=== PATIENT | female | born 1965 | race Caucasian/White ===

== ENCOUNTER → 2017-10-14 15:54 | Outpatient (CLI) | payer OTHER, SELFPAY ==
--- NOTE | 2017-10-14 09:10 | COLBX_PTH ---
PATIENT: ROSANA SHARMA LOC: [facility] U#:[id number] AGE/SX: 59/F ROOM: RE10/14/[address]: Dr. Jason Rizzo MD : 1965 BED: DIS: SPEC #: [id number] RECD: 10/14/17 15:26 STATUS: ARRON DUNIA #: [id number] VIRAL: 10/14/17 09:[address]: Jason Rizzo DEPT: SURGICAL PATHOLOGY RECD BY: Daniel Warren ENTERED: 10/17/17 12:57 SP TYPE: COLON BX OTHR DR: Dr. Kristi Gamez MD [facility] Tissues: Left colon Procedures: Surgery Specimen Level IV HEADER OPERATION: Colonoscopy with biopsies PRE-OP DIAGNOSIS: Screening/colitis TISSUE SUBMITTED: Left colon biopsy, rule out microscopic colitis MICROSCOPIC DIAGNOSIS Left colon, biopsy: Fragments of colonic mucosa, no pathologic diagnosis. SJ:dru 10/18/17 MICROSCOPIC DESCRIPTION Slides are reviewed. GROSS DESCRIPTION Received in fixative is one container labeled with the patient's name and designated colonoscopy with biopsy. The specimen consists of multiple irregular fragments of light treadwell soft tissue that in aggregate measure 1 x 0.3 x 0.1 cm. The specimen is totally submitted in one cassette. / SJ:dru 10/17/17 TC:4 CPT: 43980
== END ==
PROVIDERS: Family Provider Internal Medicine; PCP Internal Medicine; Visit Provider Internal Medicine Gastroenterology
DX: Z12.11 Encounter for screening for malignant neoplasm of colon (principal); K52.9 Noninfective gastroenteritis and colitis, unspecified
CPT/HCPCS: 88305

== ENCOUNTER → 2020-01-02 | Outpatient (CLI) | payer OTHER, SELFPAY ==
[2017-07-04 13:51] VITALS: BMI 42.7
--- NOTE | 2020-01-02 08:02 | CT_ITS ---
STUDY: CT SCAN LOWER EXTREMITY LEFT REASON FOR EXAM: Female, 54 years old. LEFT KNEE AGATA PROTOCOL RADIATION DOSAGE (If Supplied By Facility): CTDIvol = ( 19.49 ) mGy, DLP = ( 1170.70 ) mGycm. Individualized dose optimization techniques were used for this CT.? TECHNIQUE: Multiple axial tomographic images of the left hip joint, knee joint and ankle joint were obtained. Sagittal and coronal reconstructive images were obtained as well. COMPARISON: None. FINDINGS: The left hip is unremarkable. No significant degenerative change is seen. No abnormality is present. There is evidence of a marked degree of joint space narrowing and osteoarthritis involving the medial compartment of knee joint with a degenerative spur formation along the anterior medial aspect of the distal femur as well as proximal tibia. There is a 6.4 mm x 6.1 mm cyst in the medial posterior aspect of the lateral tibial plateau. There is also evidence of a degenerative spurring along the superior aspect of the medial femoral condyle posteriorly. Moderate amount of osteoarthritis involving the patellofemoral joint. There is evidence of a small joint effusion. The ankle joint is unremarkable. There is evidence of a 7.3 mm focal sclerotic finding along the anterior aspect of the talar neck. CT/Extremity Lower without Contra IMPRESSION: Marked degree of osteoarthritis with a degenerative changes involving the medial compartment of the knee joint. Small joint effusion. Electronically Signed: Santiago Phillips, at 13:49 EDT , Service support ,
== END | disposition home or self-care (01) ==
PROVIDERS: PCP Nurse Practitioner Family; Referring Provider Physician Assistant; Visit Provider Physician Assistant
DX: M21.162 Varus deformity, not elsewhere classified, left knee (principal)
CPT/HCPCS: 73700

== ENCOUNTER 2020-01-14 10:13 | Observation (INO) | payer OTHER, SELFPAY ==
[2017-07-04 13:51] VITALS: BMI 42.7
[2020-01-02 08:13] LABS: Absolute Lymphocyte Count 1.86 X10^3/uL (0.83-4.51); Absolute Neutrophil Count 4.7 X10^3/uL (2.0-7.7); Basophil# 0.04 X10^3/uL; Basophil% 0.6 % (0-1); Eosinophil# 0.13 X10^3/uL; Eosinophils% 1.8 % (0-5); Hematocrit 39.5 % (37-47); Hemoglobin 12.4 g/dL (12.0-15.0); Lymphocyte # 1.86 X10^3/ul (4.0); Lymphocyte % 26.2 % (19-41); Mean Corp Hgb Conc 31.4 g/dL (32-36); Mean Corpuscular Hgb 27.4 pg (27.0-32.0); Mean Corpuscular Volume 87.4 fL (81-99); Mean Platelet Vol. 9.2 fl (6.2-12.0); Monocyte# 0.37 X10^3/uL; Monocyte% 5.2 % (0-10); NRBC Flagged by Analyzer 0 % (0-5); Neutrophil % 66.1 % (47-70); Platelet Count 225 K/mm3 (150-450); RBC Distribution Width CV 13.8 % (11.6-14.6); RBC Distribution Width SD 43.8 fl (35.1-43.9); Red Blood Count 4.52 M/mm3 (4.2-5.4); White Blood Count 7.1 K/mm3 (4.4-11.0)
[2020-01-02 08:35] LABS: Anion Gap 9 (5-15); BUN 16 mg/dL (7-18); BUN/Creat Ratio 17.8 RATIO (10-20); Calcium,Total 9.3 mg/dL (8.5-10.1); Chloride 107 mmol/L (98-107); EST Glomerular Filtration Rate 69 mL/min (>60); Est Glom Filt Rate - Afr Amer 84 mL/min (>60); Glucose 114 mg/dL (74-106); Potassium 4.3 mmol/L (3.5-5.1); Sodium Level 139 mmol/L (136-145)
[2020-01-02 08:42] LABS: Hemoglobin A1c 5.9 % (3.8-5.6)
--- NOTE | 2020-01-02 08:43 | EKG12_ITS ---
Test Reason : PRE OP Blood Pressure : / mmHG Vent. Rate : 065 BPM Atrial Rate : 065 BPM P-R Int : 140 ms QRS Dur : 070 ms QT Int : 398 ms P-R-T Axes : 036 005 001 degrees QTc Int : 413 ms Normal sinus rhythm with sinus arrhythmia Normal ECG Confirmed by LINH KING, KAREN ([id number]), news editor DELFINA RIVER ([id number]) on 01/04/2020 9:12:37 AM Referred By: Rosalio Blake Confirmed By:KAREN MELTON MD
[2020-01-13 13:44] LABS: Probe Check PASS; Specimen Processing Control PASS
[2020-01-14] VITALS (11 sets, daily range): BP systolic 101–144; BP diastolic 53–99; PULSE 50–80; RESP 16–18; TEMP 36.5–36.9; O2SAT 95–100; BMI 48.9
[2020-01-14 08:59] LABS: AST(SGOT) 31 U/L (15-37); Alanine Aminotransfer ALT/SGPT 59 U/L (13-56); Albumin, Serum 3.5 g/dL (3.2-5.0); Alkaline Phosphatase 92 U/L (45-117); Bilirubin, Direct 0.13 mg/dL (0.00-0.30); Protein, Total 7.5 g/dL (6.4-8.2)
[2020-01-14] MEDS: Gabapentin 600 MG Tablet PO (09:11)
[2020-01-14] MEDS: Acetaminophen 500 MG Tablet 1000 MG PO ×3 (09:11→21:28)
[2020-01-14] MEDS: Lactated Ringers 1,000 ML 100 ML IV (09:44)
[2020-01-14 09:45] LABS: Bedside Glucose 91 mg/dL (70-110)
--- NOTE | 2020-01-14 10:00 | KNEE_PTH ---
PATIENT: ROSANA SHARMA LOC: [facility] U#:[id number] AGE/SX: 54/F [facility]: [facility] RE01/14/[address]: Dr. Rosalio Blake DO : 1965 BED: 1 DIS: 01/15/2020 SPEC #: [id number] RECD: 01/14/20 13:00 STATUS: ARRON REChava #: [id number] VIRAL: 01/14/20 10:[address]: Rosalio Blake DEPT: SURGICAL PATHOLOGY RECD BY: Santiago Bolaños ENTERED: 01/15/20 09:06 SP TYPE: TOTAL KNEE OTHR DR: Pallavi Ivory, ENGINEERING WRITER-C Tissues: Knee, NOS Procedures: Decalcification bone/plaque Surgery Specimen Level IV HEADER OPERATION: Total knee replacement robotic arm assist PRE-OP DIAGNOSIS: Left knee osteoarthritis TISSUE SUBMITTED: Debrided bone and tissue left knee MICROSCOPIC DIAGNOSIS Bone and soft tissue of left knee, total knee resection: Severe degenerative joint disease. Mild synovial hyperplasia with associated mild chronic inflammation. AM:dru 01/18/20 MICROSCOPIC DESCRIPTION Slides are reviewed. GROSS DESCRIPTION Received is one container designated debrided bone and tissue left knee. The specimen consists of multiple fragments of treadwell-yellow bone measuring in aggregate 10 x 8 x 3 cm. Also in the specimen container are multiple fragments of yellow-white soft tissue measuring in aggregate 8 x 7 x 3 cm. A number of bony fragments contain articular surfaces consistent with tibial plateau and femoral condyle and displaying prominent osteophyte formation, eburnation, and bone erosion. Turntable Engineer sections are submitted in two cassettes as follows: 1 - soft tissue, 2 - bone after decalcification. / SJ:dru 01/15/20 TC:5 [facility]: [id number], [id number]
[2020-01-14] MEDS: Cefazolin 2 GM in 0.9% Normal Saline 100 ML IV (10:10)
[2020-01-14 10:11] LABS: Prothrombin Time Fingerstick 14.1 SEC (11.9-14.4)
--- NOTE | 2020-01-14 12:00 | PCM.OPRPT ---
Report of Operation Date of Procedure: 01/14/20 Pre-Operative Diagnosis: OA left knee Post-Operative Diagnosis: same Surgery/Procedure Performed:: left TKR certified pharmacy technician: Johnathan Mcdowell Type of Anesthesia:: Spinal Anesthesiologist: Andres Valdivia - Admvarun VTE Documentation VTE Present on Admission: No VTE Mechan Device Prophylaxis: SCD's, Thigh High ANÍBAL Hose VTE Pharm Prophylaxis ordered?: Yes
[2020-01-14] MEDS: Lactated Ringers 1,000 ML 999 ML IV (12:15)
--- NOTE | 2020-01-14 12:40 | RAD_ITS ---
STUDY: X-RAY - LEFT KNEE REASON FOR EXAM: Female, 54 years old. Post op left total knee TECHNIQUE: 2 view(s) of the knee. COMPARISON: None. FINDINGS: Normal visualized distal femur. Normal visualized proximal tibia and fibula. Normal proximal tibiofibular articulation. The patient is status post total knee replacement. There is good alignment. Postoperative soft tissue changes. RAD/Knee 1 or 2 Views IMPRESSION: Status post total knee replacement. There is good alignment. Postoperative soft tissue changes. Electronically Signed: Santiago Phillips, at 13:01 EDT , Service support ,
[2020-01-14 12:47] LABS: Hematocrit 36.1 % (37-47); Hemoglobin 11.3 g/dL (12.0-15.0); Mean Corp Hgb Conc 31.3 g/dL (32-36); Mean Corpuscular Volume 89.4 fL (81-99); Mean Platelet Vol. 9.1 fl (6.2-12.0); Platelet Count 224 K/mm3 (150-450); RBC Distribution Width CV 13.8 % (11.6-14.6); RBC Distribution Width SD 44.9 fl (35.1-43.9); Red Blood Count 4.04 M/mm3 (4.2-5.4); White Blood Count 6.4 K/mm3 (4.4-11.0)
[2020-01-14 13:01] LABS: Bedside Glucose 104 mg/dL (70-110)
[2020-01-14 13:01] LABS: Anion Gap 5 (5-15); BUN 12 mg/dL (7-18); BUN/Creat Ratio 14.1 RATIO (10-20); Calcium,Total 8.8 mg/dL (8.5-10.1); Chloride 108 mmol/L (98-107); Creatinine, Serum 0.85 mg/dL (0.55-1.02); EST Glomerular Filtration Rate 73 mL/min (>60); Est Glom Filt Rate - Afr Amer 89 mL/min (>60); Estimated Creatinine Clearance 59.15 ml/min; Glucose 121 mg/dL (74-106); Potassium 3.9 mmol/L (3.5-5.1); Sodium Level 140 mmol/L (136-145)
[2020-01-14] MEDS: Lactated Ringers 1,000 ML 125 ML IV ×2 (13:42→21:28)
[2020-01-14] MEDS: Cefazolin 1 GM/50 ML BAG IV (18:38)
[2020-01-14] MEDS: Aspirin 325 MG Tablet PO (18:39)
[2020-01-14] MEDS: metFORMIN HCl 500 MG Tablet PO (18:39)
[2020-01-14] MEDS: Atorvastatin Calcium 40 MG Tablet PO (21:28)
[2020-01-14] MEDS: buPROPion (XL) 150 MG TABLET.XL PO (21:28)
[2020-01-14] MEDS: Vitamin E 400 UNITS Capsule PO (21:28)
[2020-01-14] MEDS: oxyCODONE 5 MG Tablet PO (22:44)
[2020-01-15] MEDS: Cefazolin 1 GM/50 ML BAG IV (02:22)
[2020-01-15] MEDS: oxyCODONE 5 MG Tablet PO ×3 (02:26→12:15)
[2020-01-15 02:33] VITALS: BP 132/70; PULSE 63; RESP 16; TEMP 36.4; O2SAT 98
[2020-01-15] MEDS: Acetaminophen 500 MG Tablet 1000 MG PO (05:05)
[2020-01-15 05:47] LABS: Hematocrit 37.1 % (37-47); Hemoglobin 10.6 g/dL (12.0-15.0); Mean Corp Hgb Conc 28.6 g/dL (32-36); Mean Corpuscular Hgb 27.8 pg (27.0-32.0); Mean Corpuscular Volume 97.4 fL (81-99); Mean Platelet Vol. 8.9 fl (6.2-12.0); Platelet Count 195 K/mm3 (150-450); RBC Distribution Width CV 14.2 % (11.6-14.6); RBC Distribution Width SD 50.3 fl (35.1-43.9); Red Blood Count 3.81 M/mm3 (4.2-5.4); White Blood Count 7.3 K/mm3 (4.4-11.0)
[2020-01-15 06:12] LABS: Anion Gap 8 (5-15); BUN 9 mg/dL (7-18); BUN/Creat Ratio 12.2 RATIO (10-20); Chloride 106 mmol/L (98-107); Creatinine, Serum 0.74 mg/dL (0.55-1.02); EST Glomerular Filtration Rate 87 mL/min (>60); Est Glom Filt Rate - Afr Amer 105 mL/min (>60); Estimated Creatinine Clearance 67.94 ml/min; Glucose 131 mg/dL (74-106); Potassium 4.5 mmol/L (3.5-5.1); Sodium Level 138 mmol/L (136-145)
--- NOTE | 2020-01-15 07:09 | PN.ORTHO_ITS ---
Subjective: Pt. with pain as expected. No calf pain. No N/T/P. - Physical Exam Vitals/I&O's: Vital Signs Temp Pulse Resp BP Pulse Ox 97.5 F L 63 16 132/70 H 98 01/15/20 02:33 01/15/20 02:33 01/15/20 02:33 01/15/20 02:33 01/15/20 02:33 Oxygen Flow Rate (L/min) 6 Oxygen Delivery Method Room Air Weight: 267 lb 3.204 oz Body Mass Index (BMI) 48.9 Intake and Output for Last 24 Hours 01/13/20 01/14/20 01/15/20 23:59 23:59 23:59 Intake Total 4552.08 / 4552.08 2295.83 / 2295.83 Balance 4552.08 / 4552.08 2295.83 / 2295.83 General: Alert, Oriented x3, Cooperative, No apparent distress Extremities: No clubbing, No cyanosis, No edema, Capillary Refill Less than 3 Seconds, No Calf Tenderness, Tenderness - About thigh from tourniquet Skin: Incision - stable Laboratory Results 01/14/20 08:35: Total Bilirubin 0.40, Direct Bilirubin 0.13, AST 31, ALT 59 H, Alkaline Phosphatase 92, Total Protein 7.5, Albumin 3.5, Globulin 4.0 01/14/20 09:01: POC Glucose 91 01/14/20 09:52: POC PT 14.1, INR 1.10 01/14/20 12:35: WBC 6.4, RBC 4.04 L, Hgb 11.3 L, Hct 36.1 L, MCV 89.4, MCH 28.0, MCHC 31.3 L, RDW Std Deviation 44.9 H, RDW Coeff of Rei 13.8, Plt Count 224, MPV 9.1 01/14/20 12:35: Sodium 140, Potassium 3.9, Chloride 108 H, Carbon Dioxide 27.0, Anion Gap 5, BUN 12, Creatinine 0.85, Estim Creat Clear Calc 59.15, Est GFR (MDRD) Af Amer 89, Est GFR (MDRD) Non-Af 73, BUN/Creatinine Ratio 14.1, Glucose 121 H, Calcium 8.8 01/14/20 12:45: POC Glucose 104 01/15/20 05:20: WBC 7.3, RBC 3.81 L, Hgb 10.6 L, Hct 37.1, MCV 97.4 D, MCH 27.8, MCHC 28.6 L D, RDW Std Deviation 50.3 H, RDW Coeff of Rei 14.2, Plt Count 195, MPV 8.9 01/15/20 05:20: Sodium 138, Potassium 4.5, Chloride 106, Carbon Dioxide 24.0, Anion Gap 8, BUN 9, Creatinine 0.74, Estim Creat Clear Calc 67.94, Est GFR (MDRD) Af Amer 105, Est GFR (MDRD) Non-Af 87, BUN/Creatinine Ratio 12.2, Glucose 131 H, Calcium 8.0 L Current Medications Acetaminophen (Tylenol) 1,000 mg PO Q8 [facility] Last Admin: 01/15/20 05:05 Dose: 1,000 mg Documented by: [facility] Admin: 01/14/20 18:39 Dose: 325 mg Documented by: [facility]orvastatin [facility] Admin: 01/14/20 21:28 Dose: 40 mg Documented by: Bupropion HCl (Wellbutrin Xl) 150 mg PO QHS [facility] Last Admin: 01/14/20 21:28 Dose: 150 mg Documented by: Calcium/Vitamin D (Os-Miguel 500mg + D) [facility] Citalopram Hydrobromide (Celexa) 40 mg PO DAILY [facility] Hyoscyamine Sulfate (Levsin/Sl) 0.125 mg PO DAILY PRN PRN Reason: Irritable Bowel Syndrome Loratadine (Claritin) 10 mg PO DAILY PRN PRN Reason: ALLERGIES Lorazepam (Ativan) 0.5 mg PO DAILY PRN PRN PRN Reason: ANXIETY Metformin [facility] (Glucophage) [facility] Last Admin: 01/14/20 18:39 Dose: 500 mg Documented by: Metoprolol Succinate (Toprol Xl (Beta Nunu)) 50 mg PO DAILY [facility] Multivitamins (Multivitamin) 1 tablet PO DAILY@0800 [facility] Ondansetron HCl (Zofran) 4 mg IV Q8H PRN PRN PRN Reason: NAUSEA Oxycodone HCl (Oxyir) 5 - 10 mg PO Q4H PRN PRN PRN Reason: Pain Score 4-10/10 Last Admin: 01/15/20 02:26 Dose: 5 mg Documented by: Pantoprazole Sodium (Protonix) 40 mg PO DAILY [facility] Promethazine HCl (Phenergan) 12.5 mg IM Q6H PRN PRN; Protocol PRN Reason: NAUSEA/VOMITING Senna/Docusate Sodium (Senokot-S, Lacie-Colace) 2 tablet PO BID [facility] Last Admin: 01/14/20 21:27 Dose: Not Given Documented by: Sodium Chloride () 10 - 40 ml IV UD PRN PRN Reason: SALINE FLUSH Tolterodine Tartrate (Detrol La) 2 mg PO DAILY [facility] Vitamin E (Vitamin E) 400 units PO BID [facility] Last Admin: 01/14/20 21:28 Dose: 400 units Documented by: Zinc Sulfate (Zinc Sulfate) 220 mg PO DAILY [facility] Medical Necessity - Tobacco Use Smoking Status: Never smoker Tobacco Use: Non-smoker Assessment/Plan s/p L TKR PT today and home this afternoon
--- NOTE | 2020-01-15 07:31 | DCINST_ITS ---
Discharge Diet: No Restrictions Discharge Activity: May Not Drive, May Shower May resume sexual activity in: No Restrictions Weight Bearing Status: Weight bearing as tolerated Elevate: Left Leg Call your doctor if your incision/area has: Continuous Slow Oozing, Sudden Increased Bleeding, Increased Pain/ Swelling, Increased Redness, Foul Smelling Discharge Call your doctor if you observe: Fever of 101 or Higher, Coldness, Increased Pain, Numbness or Tingling, Shortness of breath, Chest pain Cleanse incision/area with: Do not get Incision Wet Allergies/Adverse Reactions: Allergies No Known Allergies Allergy (Verified 01/14/20 08:46) Medications to take at Discharge Calcium Carbonate/Vitamin D3 [Calcium 600-Vit D3 400 Tablet] 1 each PO DAILY 06/21/17 Citalopram [Celexa] 40 mg PO DAILY 06/21/17 Hyoscyamine Sulfate 0.125 mg PO DAILY PRN 06/21/17 Metformin HCl 500 mg PO BID 06/21/17 Metoprolol Succinate 50 mg PO DAILY 06/21/17 Omeprazole/Sodium Bicarbonate [Zegerid 40 mg Capsule] 20 each PO DAILY 06/21/17 Oxybutynin Chloride [Ditropan Xl] 10 mg PO DAILY 06/21/17 Loratadine [Allergy Relief] 10 mg PO DAILY PRN 01/07/20 Lorazepam [Ativan] 0.5 mg PO DAILY PRN PRN 01/07/20 Multivitamin 1 ea PO DAILY 01/07/20 Vitamin E 400 unit PO BID 01/07/20 Zinc 50 mg PO DAILY 01/07/20 buPROPion XL [Wellbutrin Xl] 150 mg PO QHS 01/07/20 Acetaminophen [Tylenol] 1,000 mg PO Q8 tab 01/15/20 Aspirin 325 mg PO BIDCM tab 01/15/20 Atorvastatin Calcium [Lipitor] 40 mg PO QHS tab 01/15/20 Oxycodone [Oxyir] 5 - 10 mg PO Q4H PRN PRN #60 tab 01/15/20 Senna/Docusate Sodium [Senokot-S] 2 tab PO BID tab 01/15/20 The following prescriptions were given: Oxycodone [Oxyir] 5 - 10 mg PO Q4H PRN PRN #60 tab PRN Reason: Pain Score 4-10/10 Prescription Printed Orders to be completed after discharge: Partial Thromboplast Time Time Frame: 01/14/20, Facility: [facility], Location: Laboratory Prothrombin Time w/INR Time Frame: 01/14/20, Facility: [facility], Location: Laboratory Primary Care Physician: Pallavi Ivory NP-C [Primary Care Provider] - Test Results: Test results from this visit will be discussed in further detail at your follow- up appointment, if applicable. Please Follow Up With: Dr. Blake as scheduled
[2020-01-15 07:44] VITALS: BP 95/75; PULSE 67; RESP 18; TEMP 36.8; O2SAT 96
[2020-01-15] MEDS: Aspirin 325 MG Tablet PO (07:54)
[2020-01-15] MEDS: metFORMIN HCl 500 MG Tablet PO (07:55)
[2020-01-15] MEDS: Multivitamins,Therapeutic Tablet 1 TABLET PO (07:55)
[2020-01-15] MEDS: Calcium Carb/Vitamin D 1 TABLET Tablet PO (07:56)
[2020-01-15] MEDS: Citalopram 20 MG Tablet 40 MG PO (07:56)
[2020-01-15 07:57] VITALS: BP 95/75; PULSE 67
[2020-01-15] MEDS: Senna/Docusate Sodium 1 Tablet 2 TABLET PO (07:57)
[2020-01-15] MEDS: Metoprolol(XL)Succ 50 MG Tablet PO (07:57)
[2020-01-15] MEDS: Tolterodine Tartrate 2 MG CAP.SA PO (07:57)
[2020-01-15] MEDS: Pantoprazole Sodium 40 MG Tablet PO (07:57)
[2020-01-15] MEDS: Vitamin E 400 UNITS Capsule PO (07:58)
--- NOTE | 2020-01-15 10:30 | CASEMGMT ---
RN SUHA Face to Face with patient for initial transition planning/care coordination assessment. RN CM introduced self and role at [facility]. Patient sitting in chair, alert and oriented. Patient willing to participate in assessment and is able to answer all questions appropriately. Care providers, pharmacy, and demographics verified. Patient wishes to discharge home, and is setup with outpatient therapy at [facility]. Patient states she has no further needs or concerns at this time. CM to follow for discharge planning needs that may arise. PCP: Dianelys Specialists: petrona Blake Preferred Pharmacy: [facility] getting filled at [facility] retail Insurance: MMO Prescription Benefit: yes Living Will/HPOA: none LNOK: Living Arrangements: patient lives with in 2 story home, arrangements to stay on main level of home. Patient independent at home prior to surgery Transportation: DME/HHC: Patient states she has walker, raised toilet seat, cane, shower chair, and grab bars at home. Patient is scheduled for outpatient therapy for Tuesday. Disposition Plan: Patient to discharge home with family support and follow-up plans in place. Johanne PITTMAN, RN, CM
[2020-01-15 12:30] VITALS: BP 141/69; PULSE 75; RESP 18; TEMP 36.9; O2SAT 97
[2020-01-15 14:00] VITALS: BP 141/69; PULSE 75; RESP 18; TEMP 36.9; O2SAT 97
== END 2020-01-15 13:51 | disposition home or self-care (01) ==
LOC: SDC 10:20 → MS3 10:20
PROVIDERS: Anesthesiology; Physician Assistant; Admitting Provider Orthopaedic Surgery; PCP Nurse Practitioner Family; Referring Provider Orthopaedic Surgery; Visit Provider Orthopaedic Surgery
PROC: 0SRD0JZ Replacement of Left Knee Joint with Synthetic Substitute, Open Approach (ICD-10-PCS; CPT 27447; principal; 2020-01-14 09:30)
DX: M17.12 Unilateral primary osteoarthritis, left knee (principal); E78.00 Pure hypercholesterolemia, unspecified; F41.9 Anxiety disorder, unspecified; F32.9 Major depressive disorder, single episode, unspecified; Z79.899 Other long term (current) drug therapy; K76.0 Fatty (change of) liver, not elsewhere classified; M21.162 Varus deformity, not elsewhere classified, left knee; E66.9 Obesity, unspecified; Z68.42 Body mass index [BMI] 45.0-49.9, adult; K58.9 Irritable bowel syndrome, unspecified; K21.9 Gastro-esophageal reflux disease without esophagitis; R73.03 Prediabetes; Z87.448 Personal history of other diseases of urinary system; I10 Essential (primary) hypertension
CPT/HCPCS: 01400; 27447; 64447; S2900; 36415; 36416; 73560; 80048; 80076; 82962; 83036; 85025; 85027; 85610; 87077; 87081; 87635; 88305; 88311; 93005; 96361; 96365; 96366; 97110; 97116; 97162; 97166; 97530; 99218; 99251; C1776; G2023; J7120; G0378; G0379; G0463; J2405; U0003